=== PATIENT | male | born 1965 | race African-American/Black ===

== ENCOUNTER 2018-07-07 07:20 | Emergency (ER) | payer OTHER ==
[~2018-07-07] VITALS: Ht 175.3 cm; Wt 111.6 kg
[2018-07-07 07:59] LABS: ABSOLUTE NEUTROPHILS 7.9 thou/uL (1.4-8.2); BASOPHILS 1.1 % (0.0-2.0); EOSINOPHILS 3.8 % (0.0-3.0); HEMATOCRIT 40.5 % (42.0-52.0); HEMOGLOBIN 13.4 gm/dL (14.0-18.0); LYMPHOCYTES 20.9 % (24.0-44.0); MCH 26.8 pg (26.0-34.0); MCHC 33.2 g/dL (28.0-37.0); MCV 80.7 fL (80.0-100.0); MONOCYTES 8.3 % (1.0-8.0); PLATELET COUNT 285 thou/uL (150-400); POLYS 65.9 % (36.0-66.0); RBC 5.02 mil/uL (4.50-6.00); RDW 13.4 % (10.5-14.5)
[2018-07-07 08:05] LABS: ANION GAP 12 mmol/L (7-16); BUN 16 mg/dL (7-18); CALCIUM 9.1 mg/dL (8.5-10.1); CHLORIDE 102 mmol/L (98-107); CO2 24 mmol/L (21-32); GLUCOSE 122 mg/dL (74-106); POTASSIUM 3.9 mmol/L (3.5-5.1); SODIUM 138 mmol/L (136-145)
[2018-07-07 08:13] LABS: APTT 29.9 Seconds (24.5-32.8); INR 1.1; PROTIME 11.6 Seconds (9.3-11.4)
[2018-07-07 08:16] LABS: ALBUMIN 3.5 g/dL (3.4-5.0); SGOT 43 U/L (15-37); SGPT 44 U/L (30-65); TOTAL BILIRUBIN 0.3 mg/dL (<0.1-1.0); TOTAL PROTEIN 7.7 g/dL (6.4-8.2); TROPONIN-I <0.06 ng/mL (<0.06)
[2018-07-07 09:07] VITALS: BP 113/75
--- NOTE | 2018-07-08 22:37 | EKG ---
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: DAPHNIE : 1965 Requested By: Ventura Morales Order Number: [id number] MD: Noe Krause Measurements Intervals [place] Rate: 100 P: 46 NM: 148 QRS: 11 QRSD: 83 T: 62 QT: 360 QTc: 465 Interpretive Statements Sinus tachycardia Probable left atrial enlargement No previous ECG available for comparison Electronically Signed On 07-08-2018 22:37:03 CDT by Noe Krause [email or web address] ��������������������������������������������� <ELECTRONICALLY SIGNED> ���������������������������������������� By: Noe Krause MD ��������������������������������������������� 07/08/18 2237 0735 0735 Noe Krause MD /RUDY
== END 2018-07-07 09:07 | disposition short-term general hospital (02) ==
LOC: ER 07:20
PROVIDERS: Emergency Medicine
DX: I62.9 Nontraumatic intracranial hemorrhage, unspecified (principal); R41.82 Altered mental status, unspecified

== ENCOUNTER 2020-06-12 13:20 | Inpatient (IN) | payer OTHER ==
[~2020-06-12] VITALS: Ht 180.3 cm; Wt 128.9 kg
[2020-06-12 13:27] VITALS: BP 122/88
--- NOTE | 2020-06-12 13:39 | EKG ---
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: EMILI : 1965 Requested By: Liane Carlisle Order Number: [id number] MD: Anatoliy Saucedo Measurements Intervals [place] Rate: 109 P: 25 AR: 142 QRS: -7 QRSD: 86 T: 32 QT: 349 QTc: 471 Interpretive Statements Sinus tachycardia Probable left atrial enlargement Compared to ECG 07/07/2018 07:35:51 No significant changes Electronically Signed On 06-12-2020 13:39:26 CDT by Anatoliy Saucedo [email or web address] <ELECTRONICALLY SIGNED> By: Anatoliy Saucedo MD, [facility] 06/12/20 1339 1322 1322 Anatoliy Saucedo MD, FACC /EPI
[2020-06-12 13:54] LABS: ABSOLUTE NEUTROPHILS 6.4 thou/uL (1.4-8.2); BASOPHILS 1.4 % (0.0-2.0); EOSINOPHILS 3.6 % (0.0-3.0); HEMATOCRIT 34.6 % (42.0-52.0); HEMOGLOBIN 11.5 gm/dL (14.0-18.0); MCHC 33.2 g/dL (28.0-37.0); MCV 75.3 fL (80.0-100.0); MONOCYTES 8.2 % (1.0-8.0); PLATELET COUNT 235 thou/uL (150-400); POLYS 64.8 % (36.0-66.0); RBC 4.59 mil/uL (4.50-6.00); RDW 15.2 % (10.5-14.5); WBC 9.8 thou/uL (4.0-11.0)
[2020-06-12 14:05] LABS: CALCIUM 8.4 mg/dL (8.5-10.1); CREATININE 1.2 mg/dL (0.7-1.3); POTASSIUM 3.8 mmol/L (3.5-5.1)
[2020-06-12 14:14] LABS: ALBUMIN 3.1 g/dL (3.4-5.0); TOTAL BILIRUBIN 0.2 mg/dL (0.2-1.0); TOTAL PROTEIN 7.2 g/dL (6.4-8.2)
[2020-06-12 14:19] LABS: INR 1.05; PROTIME 11.4 Seconds (9.3-11.4)
[2020-06-12 16:32] LABS: URINE BILIRUBIN NEGATIVE (Negative); URINE BLOOD NEGATIVE (Negative); URINE CLARITY CLEAR; URINE COLOR YELLOW; URINE GLUCOSE-RANDOM* NEGATIVE (Negative); URINE KETONES NEGATIVE (Negative); URINE LEUKOCYTES-REFLEX NEGATIVE (Negative); URINE NITRITE-REFLEX NEGATIVE (Negative); URINE PROTEIN (DIPSTICK) NEGATIVE (Negative); URINE UROBILINOGEN 0.2 E.U./dl (0.2-1.0)
[2020-06-12 16:42] LABS: AMP/METHAMP Negative (Negative); BARBITURATES Negative (Negative); BENZODIAZEPINES Negative (Negative); COCAINE Negative (Negative); METHADONE Negative (Negative); OPIATES POSITIVE (Negative); PCP Negative (Negative)
[2020-06-12 18:07] VITALS: BP 143/88
[2020-06-12 18:19] VITALS: BP 132/81
[2020-06-12 19:00] VITALS: BP 137/86
[2020-06-12] MEDS ORDERED: BENADRYL25 MG PO (20:46)
[2020-06-12] MEDS ORDERED: LIPITOR40 MG PO (20:46)
[2020-06-12] MEDS ORDERED: AMBIEN 10 MG TA10 MG PO (20:46)
[2020-06-12] MEDS ORDERED: COZAAR 25 MG TA25 M1 PO (20:47)
[2020-06-12] MEDS ORDERED: PRILOSEC OTC20 MG PO (20:47)
[2020-06-12] MEDS ORDERED: NORVASC5 M1 PO (20:48)
[2020-06-12] MEDS ORDERED: HYDROCHLOROTH12.5 M2 PO (20:49)
[2020-06-12] MEDS ORDERED: HYDROCODON-ACE1 EA11 PO (20:51)
[2020-06-12] MEDS ORDERED: BACLOFEN 10MG T10 MG PO (20:51)
[2020-06-12] MEDS ORDERED: NEURONTIN300 MG PO (20:52)
[2020-06-13 00:28] VITALS: BP 120/66
[2020-06-13 03:30] VITALS: BP 112/76
--- NOTE | 2020-06-13 03:49 | NUR ---
PT ARRIVED FROM ER VIA CART. PLACED IN ROOM 360. ADMISION ASSESSMENTS COMPLETED. PT C/O PAIN THROUGHOUT HIS "LEFT SIDE. EVER SINCE I HAD THAT STROKE." LORTAB GIVEN PER ORDERS. ALERT AND ORIENTED X4 UPON ARRIVAL THOUGH HE STATES HE DOES NOT RECALL FAITING/PASSING OUT AT HOME ONLY THAT HE CAME TO WHILE HE WAS HERE IN THE ER. HE STATES THAT HE WAS "EATING LUNCH, THEN I WOKE UP HERE." NOTED SR/ST ON TELEMETRY. ALSO NOTED BRIEF EPISODE OF FREQUENT PVCs WITH ONE 4 BEAT VT RUN. TELE STRIPS PLACED ON CHART.
[2020-06-13 07:23] VITALS: BP 124/81
[2020-06-13 15:06] VITALS: BP 139/85
[2020-06-13 15:47] VITALS: BP 139/85
--- NOTE | 2020-06-13 16:00 | NUR ---
assumed patient care at 0700. no ditress noted. dr shasta truner dc.
== END 2020-06-13 16:00 | disposition home or self-care (01) | DRG 101 ==
LOC: ER 13:20 → EROBS 16:26 → 3W 18:46
PROVIDERS: Emergency Medicine; ADMIT Internal Medicine; ATTEND Internal Medicine
DX: G40.89 Other seizures (principal); R55 Syncope and collapse; I10 Essential (primary) hypertension; E78.00 Pure hypercholesterolemia, unspecified; G89.4 Chronic pain syndrome; E66.01 Morbid (severe) obesity due to excess calories; K21.9 Gastro-esophageal reflux disease without esophagitis; R73.03 Prediabetes; E78.5 Hyperlipidemia, unspecified; Z86.73 Personal history of transient ischemic attack (TIA), and cerebral infarction without residual deficits; Z79.891 Long term (current) use of opiate analgesic; Z68.39 Body mass index [BMI] 39.0-39.9, adult; Z71.6 Tobacco abuse counseling
CPT/HCPCS: 10879